=== PATIENT | female | born 1995 | race Caucasian/White ===

== ENCOUNTER 2020-10-24 15:36 | Emergency (ER) | payer MEDICAID ==
[~2020-10-24] VITALS: Ht 170.2 cm; Wt 93.3 kg
[2020-10-24 15:39] VITALS: BP 115/65
--- NOTE | 2020-10-24 15:57 | NUR ---
patient care technician instructor at bedside for lab draw. Pt able to go to restroom for UA sample directly after lab draw. assessment nurse practitioner completed. US tech arrived and states they will return shortly for pt.
[2020-10-24] MEDS ORDERED: IBUP-1902 PO (16:06)
[2020-10-24 16:14] LABS: BASOPHILS % (AUTO) 1 % (0-1); EOSINOPHILS % (AUTO) 2 % (1-7); LYMPHOCYTES % (AUTO) 43 % (22-44); MEAN CORPUSCULAR HEMOGLOBIN 28.2 pg (27.0-34.8); MEAN CORPUSCULAR HGB CONC 34.2 g/dL (32.4-35.8); MEAN PLATELET VOLUME 9.2 fL (7.4-10.4); MONOCYTES % (AUTO) 10 % (2-9); NEUTROPHILS % (AUTO) 44 % (42-75); PLATELET COUNT 242 x10^3/uL (130-400); RED BLOOD COUNT 4.58 x10^6/uL (3.82-5.3)
--- NOTE | 2020-10-24 16:15 | NUR ---
Pt to US at this time via [facility] with [employer].
[2020-10-24 16:21] LABS: ALBUMIN 3.7 g/dL (3.4-5.0); ANION GAP 6 mmol/L (5-15); CALCIUM 8.9 mg/dL (8.5-10.1); CHLORIDE 109 mmol/L (98-107); CREATININE 0.91 mg/dL (0.55-1.02)
[2020-10-24 16:33] LABS: MICROSCOPIC INDICATED
--- NOTE | 2020-10-24 16:39 | NUR ---
Lab results reviewed. Awaiting pt return from US with US results.
== END 2020-10-24 17:16 | disposition home or self-care (01) ==
LOC: ED 16:55
DX: O26.891 Other specified pregnancy related conditions, first trimester (principal); M54.5 Low back pain; Z90.89 Acquired absence of other organs; Z3A.01 Less than 8 weeks gestation of pregnancy
CPT/HCPCS: 36415; 76801; 80048; 81001; 82040; 84702; 85025; 99284

== ENCOUNTER 2020-11-07 12:27 | Emergency (ER) | payer MEDICAID ==
[~2020-11-07] VITALS: Ht 170.2 cm; Wt 91.2 kg
[~2020-11-07 12:27] MED LIST: IBUP-1902 PO
[2020-11-07] MEDS ORDERED: ONDANSETRON 2MG/ML, 2ML IVPush ONE (13:30)
[2020-11-07] MEDS ORDERED: SODIUM CHLORIDE FLUSH 10ML SYR IVF ONE (13:30)
[2020-11-07] MEDS ORDERED: SODIUM CHLORIDE 0.9% 1,000ML IVBOLUS ONE (13:30)
--- NOTE | 2020-11-07 13:30 | NUR ---
PT AMBULATED TO ROOM FROM LOBBY. PT IS 6 WEEKS , STATED THAT SHE CANNOT KEEP ANY FOOD/FLUIDS DOWN X4 DAYS. PT ALSO CO RLQ PAIN WHEN VOMITING. PT DENIES ANY CRAMPING/VB.
[2020-11-07] MEDS ORDERED: ONDANSETRON 2MG/ML, 2ML ONE (13:46)
--- NOTE | 2020-11-07 13:48 | NUR ---
PT TO US
[2020-11-07 14:00] VITALS: BP 125/72
[2020-11-07 14:02] LABS: BASOPHILS % (AUTO) 0 % (0-1); EOSINOPHILS % (AUTO) 1 % (1-7); LYMPHOCYTES % (AUTO) 30 % (22-44); MEAN CORPUSCULAR HEMOGLOBIN 28.1 pg (27.0-34.8); MEAN CORPUSCULAR HGB CONC 34.1 g/dL (32.4-35.8); MEAN PLATELET VOLUME 9.1 fL (7.4-10.4); MONOCYTES % (AUTO) 9 % (2-9); NEUTROPHILS % (AUTO) 60 % (42-75); PLATELET COUNT 270 x10^3/uL (130-400); RED BLOOD COUNT 4.86 x10^6/uL (3.82-5.3); RED CELL DISTRIBUTION WIDTH 13.7 % (9.6-15.2)
[2020-11-07 14:10] LABS: ALBUMIN 3.6 g/dL (3.4-5.0); ANION GAP 6 mmol/L (5-15); CALCIUM 9.5 mg/dL (8.5-10.1); CHLORIDE 106 mmol/L (98-107)
[2020-11-07 14:12] LABS: MICROSCOPIC NOT IND
--- NOTE | 2020-11-07 14:15 | NUR ---
PT BACK FROM US. PT GIVEN ZOFRAN PER MAR. ALL NEEDS MET AT THIS TIME.
[2020-11-07 14:30] LABS: ALANINE AMINOTRANSFERASE 30 U/L (12-78); ALKALINE PHOSPHATASE 74 U/L (45-117); BILIRUBIN,TOTAL 0.7 mg/dL (0.2-1.0); CREATININE 0.66 mg/dL (0.55-1.02); TOTAL PROTEIN 8.4 g/dL (6.4-8.2)
--- NOTE | 2020-11-07 15:34 | NUR ---
DISCHARGE INSTRUCTIONS REVIEWED WITH PT. ALL QUESTIONS ANSWERED AT THIS TIME.
== END 2020-11-07 15:36 | disposition home or self-care (01) ==
LOC: ED 14:09
DX: O21.8 Other vomiting complicating pregnancy (principal); Z3A.01 Less than 8 weeks gestation of pregnancy
CPT/HCPCS: 36415; 76801; 80053; 81003; 84702; 85025; 96361; 96374; 99284; J2405; J7030